=== PATIENT | female | born 1980 | race Caucasian/White ===

== ENCOUNTER 2018-03-06 09:09 | Emergency (ER) | payer BC ==
[2018-03-06] MEDS: HYDROCODONE/APAP (10/325) TAB PO (10:03)
== END 2018-03-06 11:34 | disposition home or self-care (01) ==
LOC: FTE 09:09
DX: M54.5 Low back pain (principal); M54.2 Cervicalgia
CPT/HCPCS: 72040; 72100; 81003; 81025; 99283-25